=== PATIENT | male | born 1965 | race Caucasian/White ===

== ENCOUNTER → 2020-05-28 18:05 | Outpatient (CLI) | payer BC, SELFPAY ==
[2019-10-05 10:42] VITALS: BMI 31.5
== END ==
PROVIDERS: PCP Family Medicine; Referring Provider Otolaryngology; Visit Provider Otolaryngology
DX: Z11.59 Encounter for screening for other viral diseases (principal)
CPT/HCPCS: 87635; 94799; U0003

== ENCOUNTER → 2020-09-30 10:26 | Outpatient (CLI) | payer BC, SELFPAY ==
[2019-10-05 10:42] VITALS: BMI 31.5
== END ==
PROVIDERS: PCP Family Medicine; Referring Provider Family Medicine; Visit Provider Family Medicine
DX: Z20.828 Contact with and (suspected) exposure to other viral communicable diseases (principal)
CPT/HCPCS: 87635; C9803; U0003